=== PATIENT | female | born 1950 | race Caucasian/White ===

== ENCOUNTER → 2017-07-20 | Outpatient (CLI) | payer BC ==
--- NOTE | 2017-07-21 14:33 | MAMMOGRAPHY REPORT ---
BILATERAL DIGITAL SCREENING MAMMOGRAM TOMOSYNTHESIS WITH CAD: 07/20/2017 CLINICAL HISTORY: Routine screening. Patient has no complaints. TECHNIQUE: Breast tomosynthesis in addition to standard 2D mammography was performed. Current study was also evaluated with a Computer Aided Detection (CAD) system. COMPARISON: Comparison is made to exams dated: 07/14/2016 mammogram, 07/11/2015 mammogram, 07/03/2014 mammogram, 06/22/2013 mammogram, 02/17/2012 mammogram, and 09/29/2011 mammogram - [facility] [place]. BREAST COMPOSITION: There are scattered areas of fibroglandular density in both breasts. FINDINGS: There are a few benign coarse calcifications in the breasts. A nodular asymmetry in the la teral left breast has been present and appear similar to all available prior mammograms dating back t o at least 2007, therefore likely benign. No suspicious mass, architectural distortion or cluster of suspicious microcalcifications is seen. IMPRESSION: ACR BI-RADS CATEGORY 1: NEGATIVE There is no mammographic evidence of malignancy. A 1 year screening mammogram is recommended. The pa tient will receive written notification of the results. Approximately 10% of breast cancers are not detected with mammography. A negative mammographic report should not delay biopsy if a clinically suggestive mass is present. Cecilia Hallman M.D. ay/:07/20/2017 14:07:51 [employer] Supervisor: Anai Francis M, [facility] letter sent: Normal 1/2 BI-RADS Code: ACR BI-RADS Category 1: Negative
== END | disposition home or self-care (01) ==
LOC: C.MAMM 13:04
PROVIDERS: ATTEND Family Medicine
DX: Z12.31 Encounter for screening mammogram for malignant neoplasm of breast (principal)